=== PATIENT | male | born 1990 | race Caucasian/White ===

== ENCOUNTER 2022-05-12 05:49 | Emergency (ER) | payer MEDICAID, OTHER ==
[~2022-05-12] VITALS: Ht 172.7 cm; Wt 70.0 kg
[2022-05-12 07:03] LABS: Basophils # (auto) 0 10 ^3/uL (0-0.2); Basophils % (auto) 0.1 % (0.0-2.0); Eosinophils # (auto) 0 10 ^3/uL (0-0.8); Eosinophils % (auto) 0.2 % (0.0-7.0)
[2022-05-12 07:06] LABS: Hematocrit 37.6 % (41.0-53.0); Hemoglobin 13.2 g/dL (13.5-17.5); Lymphocytes # (auto) 0.8 10 ^3/uL (0.4-5.4); Lymphocytes % (auto) 5.5 % (10.0-50.0); Mean Corpuscular Hemoglobin 36.2 pg (28.0-32.0); Mean Corpuscular Volume 103.3 fL (80.0-100.0); Monocytes # (auto) 1.5 10 ^3/uL (0-1.3); Monocytes % (auto) 9.8 % (0.0-12.0); Neutrophils % (auto) 84.4 % (37.0-80.0); Red Blood Cells 3.64 10^6/uL (4.5-5.90); Red Cell Distribution Width 13.8 % (11.8-14.3); White Blood Cell 15.4 10^3/uL (4.4-10.8)
[2022-05-12] MEDS ORDERED: SODIUM CHLORIDE 0.9% 1,000 ML IV ONE (07:15)
[2022-05-12 07:19] LABS: Anion Gap 5 (5-15); Blood Alcohol < 3.0 mg/dL (0-5); Blood Urea Nitrogen 14 mg/dL (7-18); Calcium 8.2 mg/dL (8.5-10.1); Carbon Dioxide 25 mmol/L (21-32); Chloride 105 mmol/L (98-107); Glucose 187 mg/dL (74-106); Magnesium 2.6 mg/dL (1.6-2.6); Potassium 3.5 mmol/L (3.5-5.1); Sodium 135 mmol/L (136-145)
[2022-05-12 07:23] LABS: Alanine Aminotransferase 27 U/L (16-61); Alkaline Phosphatase 104 U/L (45-117); Aspartate Aminotransferase 16 U/L (15-37); BUN/Creatinine Ratio 13.7; Bilirubin, Total 0.6 mg/dL (0.2-1.0); GFR African American 110 mL/min; GFR Non-African American 91 mL/min; Total Protein 7.1 g/dL (6.4-8.2)
[2022-05-12 07:26] LABS: Acetaminophen < 2.0 ug/mL (10-30); Salicylate < 1.7 mg/dL (2.8-20.0)
[2022-05-12] MEDS ORDERED: CEPH-510 PO (10:05)
[2022-05-12] MEDS ORDERED: cefTRIAXone 1GM/50ML D5W 50 ML IV ONE (10:15)
[2022-05-12 10:16] VITALS: BP 97/53
== END 2022-05-12 10:29 | disposition home or self-care (01) ==
LOC: ER 05:49 → EDBD 05:49 → ER 10:29
DX: T50.7X1A Poisoning by analeptics and opioid receptor antagonists, accidental (unintentional), initial encounter (principal); R41.82 Altered mental status, unspecified; R94.31 Abnormal electrocardiogram [ECG] [EKG]; Y92.89 Other specified places as the place of occurrence of the external cause
CPT/HCPCS: 36415; 80053; 80320; 80329; 83735; 85025; 93005; 96360; 99285; J7030